=== PATIENT | female | born 1930 | race Caucasian/White ===

== ENCOUNTER 2018-05-11 19:15 | Emergency (ER) | payer MEDICAID, MEDICARE, OTHER ==
[~2018-05-11] VITALS: Ht 149.9 cm; Wt 47.2 kg
[~2018-05-11 19:15] MED LIST: ALPR0.25 PO; CARV6.2554 PO; CLOP75TA2 PO; LISI-221 PO; METF500T6 PO; NOR10 PO; SIMV20TA6 PO
[2018-05-11 19:24] VITALS: BP_SYST 164
[2018-05-11] MEDS ORDERED: IPRATROPIUM/ALBUTEROL SULFATE 3 ML AMPUL.NEB (DUONEB) INH ONE (20:00)
[2018-05-11 20:41] VITALS: BP_SYST 145
== END 2018-05-11 20:41 | disposition home or self-care (01) ==
LOC: SED 19:15
DX: J45.901 Unspecified asthma with (acute) exacerbation (principal); E11.9 Type 2 diabetes mellitus without complications; I10 Essential (primary) hypertension; Z79.899 Other long term (current) drug therapy
CPT/HCPCS: 71045; 94640; 99283; J7620; J7030

== ENCOUNTER 2018-06-16 14:44 | Emergency (ER) | payer MEDICARE, OTHER ==
[~2018-06-16] VITALS: Ht 149.9 cm; Wt 47.2 kg
[2018-06-16 14:44] VITALS: BP_SYST 153
[2018-06-16] MEDS ORDERED: NACL 0.9% 1,000 ML IV ONE (15:04)
[2018-06-16] MEDS ORDERED: IPRATROPIUM BROM 0.5 MG/2.5 ML VIAL.NEB (ATROVENT) IH ONE ×2 (15:15→16:45)
[2018-06-16] MEDS ORDERED: methylPREDNISolone SOD SUCC/PF 62.5 MG/ML VIAL IVP ONE (15:15)
[2018-06-16] MEDS ORDERED: ALBUTEROL SULFATE 0.083% 2.5 MG/3 ML VIAL.NEB IH ONE ×2 (15:15→16:45)
[2018-06-16] MEDS ORDERED: ASPIRIN 81 MG TAB.CHEW PO ONE (15:15)
[2018-06-16 15:54] LABS: BASOPHILS # (AUTO) 0.1 K/uL (0.0-0.2); BASOPHILS % (AUTO) 1.2 % (0.0-2.0); EOSINOPHILS # (AUTO) 0.3 K/uL (0.0-0.4); EOSINOPHILS % (AUTO) 4.9 % (0.0-4.0); HEMOGLOBIN 12.4 g/dL (12.0-16.0); LYMPHOCYTES # (AUTO) 1.8 K/uL (1.0-5.5); LYMPHOCYTES % (AUTO) 26.8 % (20.5-51.5); MEAN CORPUSCULAR HEMOGLOBIN 29 pg (27-31); MEAN CORPUSCULAR HGB CONC 33 % (32-36); MEAN CORPUSCULAR VOLUME 89 fL (79.0-98.0); MONOCYTES # (AUTO) 0.5 K/uL (0.0-1.0); MONOCYTES % (AUTO) 7.5 % (1.7-9.3); NEUTROPHILS # (AUTO) 3.9 K/uL (1.8-7.7); NEUTROPHILS % (AUTO) 59.6 % (40.0-70.0); PLATELET COUNT (AUTO) 223 K/uL (130-430); RED BLOOD CELL COUNT(AUTO) 4.26 MIL/uL (4.2-6.2); RED CELL DISTRIBUTION WIDTH 12.8 % (9.0-15.0); WHITE BLOOD COUNT (AUTO) 6.6 K/uL (4.8-10.8)
[2018-06-16 16:37] LABS: ANION GAP 7 (5-15); CALCIUM 9.3 mg/dL (8.4-11.0); CHLORIDE 102 mmol/L (98-107); CREATININE 0.58 mg/dL (0.55-1.30); GLUCOSE 124 mg/dL (70-99); POTASSIUM 4.5 mmol/L (3.5-5.1); SODIUM SERUM 135 mmol/L (136-145); UREA NITROGEN, BLOOD 14 mg/dL (8-21)
[2018-06-16 16:41] LABS: ALANINE AMINOTRANSFERASE 18 U/L (12-78); AMYLASE 50 U/L (0-100); ASPARTATE AMINOTRANSFERASE 17 U/L (10-37); LIPASE 152 U/L (73-393); TOTAL BILIRUBIN 0.3 mg/dL (0.0-1.0)
[2018-06-16 16:47] LABS: PROTHROMBIN TIME 10.7 SECS (9.5-12.5)
[2018-06-16 16:50] LABS: ALBUMIN 3.6 g/dL (3.4-4.8)
[2018-06-16 17:15] VITALS: BP_SYST 167
[2018-06-16 17:22] LABS: BILIRUBIN,URINE NEGATIVE (NEGATIVE); BLOOD, URINE NEGATIVE (NEGATIVE); CLARITY/URINE CLEAR (CLEAR); GLUCOSE,URINE NEGATIVE (NEGATIVE); KETONES,URINE NEGATIVE (NEGATIVE); LEUKOCYTE ESTERASE ,URINE NEGATIVE (NEGATIVE); NITRITE, URINE NEGATIVE (NEGATIVE); PH,URINE 7.5 (5.0-8.0); PROTEIN URINE NEGATIVE (NEGATIVE); UROBILINOGEN,URINE 0.2 (0.2-1.0)
[2018-06-16 17:23] LABS: COLOR,URINE STRAW (YELLOW)
== END 2018-06-16 17:25 | disposition home or self-care (01) ==
LOC: SED 14:44
DX: J44.1 Chronic obstructive pulmonary disease with (acute) exacerbation (principal); E11.9 Type 2 diabetes mellitus without complications; I10 Essential (primary) hypertension; Z79.899 Other long term (current) drug therapy
CPT/HCPCS: 36415; 71045; 80053; 81003; 82150; 82550; 83690; 83880; 84484; 85025; 85379; 85610; 85730; 93005; 94640; 96374; 99284; J2930; J7030; J7613